=== PATIENT | male | born 1950 | race Caucasian/White ===

== ENCOUNTER → 2024-05-29 | Outpatient (CLI) | payer MEDICARE, OTHER ==
[2024-05-29 10:16] LABS: African American GFR (CKD) 81 (>60 ml/min/1.73 sqM); Blood Urea Nitrogen 28 mg/dL (9-20); Non-African American GFR(CKD) 70 (>60 ml/min/1.73 sqM)
--- NOTE | 2024-05-29 11:24 | CT ---
EXAMINATION TYPE: CT angio chest DATE OF EXAM: 05/29/2024 COMPARISON: None HISTORY: 74-year-old male I26.99, f/u PE/ COVID from october 2023 TECHNIQUE: Contiguous axial scanning of the chest after the administration of 100ml mL of Isovue 370. Coronal/sagittal MIP reconstructions performed. CT DLP: 382.60mGycm. Automatic exposure control utilized for a dose reduction. FINDINGS: Heart normal size without pericardial effusion. No flattening of the interventricular septum. Some mi nimal refluxing contrast into the hepatic IVC. Ectatic aortic root at 3.9 cm. Mild aneurysm ascending aorta 4.0 cm. Conventional arch vessel branching anatomy. Borderline to mildly enlarged caliber main right and left pulmonary arteries measuring up to 2.6 cm. This may reflect underlying pulmonary arterial hypertension. No pulmonary embolus is seen. No thoracic lymphadenopathy by CT size criteria. Strandy atelectasis at the lung bases. No consolidation or pleural effusion. Minimal biapical pleural parenchymal scarring. Tiny hiatal hernia. Otherwise, visualized upper abdomen shows multiple renal cysts, partially visuali zed, possibly measuring up to 7.6 cm on the left. Recommend renal ultrasound to further evaluate. Bones: [facility] upper to mid thoracic spine. Old healed upper sternal body fracture. IMPRESSION: 1. No evidence for pulmonary embolus. 2. 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 3. Possible underlying pulmonary hypertension. Clinically correlate. 4. Multiple renal cysts partially visualized. Possibly measuring up to 7.6 cm on the left. Recommend renal ultrasound to further evaluate and characterize. 5. Tiny hiatal hernia.
== END | disposition home or self-care (01) ==
LOC: RADCTMAIN 09:30
PROVIDERS: ATTEND Internal Medicine Critical Care Medicine
DX: I26.99 Other pulmonary embolism without acute cor pulmonale (principal); K44.9 Diaphragmatic hernia without obstruction or gangrene; N28.1 Cyst of kidney, acquired
CPT/HCPCS: 82565; 84520; 71275; 36415; Q9967